=== PATIENT | female | born 1960 | race Caucasian/White ===

== ENCOUNTER 2017-02-16 06:59 | Inpatient (IN) | payer MEDICARE, OTHER ==
[2017-01-29 13:53] VITALS: BMI 40.4
[2017-02-16] MEDS ORDERED: Bupivacaine Liposomal Inj 20 ml INFIL ONE (07:25)
[2017-02-16] MEDS ORDERED: Propofol 10 mg/ml Inj (20 ML) ONE (07:50)
[2017-02-16] MEDS ORDERED: Midazolam 2 MG/2 ML VIAL ONE (07:51)
[2017-02-16] MEDS ORDERED: ceFAZolin IV 2 gm in Dextrose 1 GM/50 ML BAG IVPB ONE (08:01)
[2017-02-16] MEDS ORDERED: Lactated Ringer's 1,000 ML IV ONE ×2 (08:05→10:00)
[2017-02-16] MEDS: Bacitracin 150,000 UNIT in Sodium Chloride 0.9% Irrig 3,000 ML IR SCH ×2 (08:10→10:00)
[2017-02-16] MEDS ORDERED: Tranexamic Acid 100 mg/ml IVPB ONE (08:37)
[2017-02-16] MEDS ORDERED: Rocuronium 10 mg/ml (5 ml) ONE (10:17)
[2017-02-16] MEDS ORDERED: Metoprolol 1 mg/ml Inj IVP ONE (10:17)
[2017-02-16] MEDS ORDERED: Succinylcholine Chloride 20 mg/ml Syr (5 ml) IV ONE (10:17)
[2017-02-16] MEDS ORDERED: Neostigmine Methylsulfate 3mg/3ml Syringe IV ONE (10:17)
[2017-02-16] MEDS ORDERED: Morphine 4 MG/ML VIAL ONE (10:56)
--- NOTE | 2017-02-16 12:31 | OP ---
PROCEDURE DATE: 02/16/2017 PREOPERATIVE DIAGNOSIS: Left knee arthritis. POSTOPERATIVE DIAGNOSIS: Left knee arthritis. PROCEDURE: Left total knee arthroplasty. SURGEON: Cirilo Sanches M.D. BUSINESS OBJECTS REPORT DEVELOPER: Dr. Sanches was assisted by DEREK Fisher, a third year medical student. Lesly was present and scrubbed throughout the case and assisted with retraction and wound closure. ANESTHESIA: General. COMPLICATIONS: None. ESTIMATED BLOOD LOSS: 200 mL. TOURNIQUET TIME: 100 minutes at 300 mmHg. IMPLANT: Biomet Vanguard total knee system. INDICATIONS FOR PROCEDURE: This is a 56-year-old female who presented with longstanding left knee pa in. Clinical examination was consistent with medial joint line tenderness, patellofemoral pain. Rad iographic examination was consistent with degenerative joint disease of the left knee. After a perio d of failed nonsurgical management, recommendations were for a left total knee arthroplasty. The ris ks, benefits, and alternatives of procedure were discussed with the patient and informed consent was obtained. OPERATIVE PROCEDURE: After surgical site was found and verified in preoperative holding area, the pa tient was taken to the operating room and placed supine on the operating room table. After administr ation of general anesthesia, patient received 2 grams of Ancef IV. A Bullard catheter was inserted. T ourniquet was placed about the left thigh. Care was taken to make sure all bony prominences and nerv es were well padded and protected. Venodyne boot was placed on the nonoperative extremity and the le ft lower extremity was prepped and draped in usual sterile fashion. Left lower extremity was exsangu inated using Esmarch and the tourniquet was inflated. Bony landmarks were identified about the left knee and approximately 10 cm longitudinal midline incision was made. Soft tissue was dissected sharp ly down to the knee joint and a medial parapatellar arthrotomy was performed. The anterior fat pad, ACL, PCL and menisci were all resected. Once the knee joint had been adequately exposed, the step dr willoughby was used to drill into the medullary canal of the distal femur. Intramedullary distal femoral gu sean was inserted and pinned into place. Our distal femoral resection was performed. Next, our femor al component was sized and the 4-in-1 cut block was placed. Anterior and posterior cuts were perform ed as well as our box cut. At this point, attention was directed to the tibia. Extramedullary tibia l guide was inserted and satisfied with our alignment, our tibial resection was performed. Flexion a nd extension gaps were checked. The patient was noted to have full extension and flexion, stable and balanced with varus valgus stress. Our tibial plate was sized and being careful to maintain the pro per rotation, the medullary canal of the proximal tibia was reamed and punched with the cruciate punc h. With the trial tibia, trial femur, and trial bearing in place, the knee was taken through a range of motion and was noted to have full extension and flexion and was noted to be stable. Our attentio n was directed to the patella. The thickness of patella was measured and our patellar resection was performed. Patella button was sized and the holes for our patella button were then drilled. With tr ial patella in place, the knee was taken through a range of motion. The patient was noted to have so me lateral tilt which was corrected by performing a lateral retinacular release. Satisfied, all the trial components were removed and the knee joint was pulse lavaged with antibiotic saline solution. The bony surfaces were dried and the actual tibial, femoral and patellar components were cemented in place. Care was taken to remove all excess cement. Once the cement had hardened, the wound was insp ected for any debris and the tourniquet was deflated. Any obvious bleeding was cauterized. The woun d was once again irrigated and then the actual bearing was inserted and locked into place with a cros s pin. A medium Hemovac drain was inserted and our arthrotomy was closed using #1 Vicryl suture. Cummins bcutaneous tissue was closed using 0 Vicryl and 2-0 Vicryl suture and the skin was closed using stapl es. Sterile dressing was applied and a knee immobilizer was placed. The patient was awakened from t he procedure, taken to recovery room in stable condition. Cirilo Sanches MD cc: [id number] TT: 02/16/2017 12:30:46 tanner
[2017-02-16] MEDS ORDERED: HYDROmorphone 0.5 mg/0.5 ml ISec IVP PRN (13:00)
--- NOTE | 2017-02-16 13:16 | RAD ---
PROCEDURE: Left Knee Radiographs. HISTORY: Pain. COMPARISON: None. FINDINGS: BONES: Status post recent total knee arthroplasty tibial stem cemented. Femoral and tibial components patellar alignment appear normal. JOINTS: Postop changes JOINT EFFUSION: Joint effusion with a drain in place OTHER FINDINGS: Anterior skin sutures IMPRESSION: Recent total knee arthroplasty postop changes
[2017-02-16] MEDS ORDERED: Bupivacaine 0.5% Inj(30mL) ONE (13:43)
--- NOTE | 2017-02-16 13:57 | PCM.ANESB3 ---
Femoral Nerve Block - Femoral Nerve Block Date of Procedure: 02/16/17 Anesthesiologist: Ange Pre-Procedure Diagnosis: Left knee osteoarthritis Post-Procedure Diagnosis: Left TKR Procedure Performed: Femoral Nerve Block Left - Procedure Femoral Nerve Block: The procedure was explained to the patient that it is for the post-operative pain management. Consent was obtained after a thorough discussion with the patient regarding the benefits and possible complications of local anesthetic block of the femoral nerve at the inguinal crease area. The patient was brought to the recovery room and standard monitors were applied. After applying oxygen by nasal cannula and administering IV Sedation, patient was placed in supine position with fully extended lower extremities and the __left groin exposed. The femoral artery was then carefully palpated. The ultrasound transducer was then applied to this area in the transverse plane and the femoral nerve was visualized lateral to the femoral artery and underneath the fascia iliaca. After thorough identification, the inguinal crease area was prepped with Betadine solution three times and 1 % Lidocaine was injected subcutaneously for topical anesthesia. At this point, a #22 gauge Stimuplex 2-inch needle was inserted immediately lateral to the femoral artery pulse at the inguinal crease and advanced perpendicularly. The needle was inserted to the ultrasound transducer in-plane towards the femoral nerve in a [id number] direction. Needle advancement was performed carefully under direct ultrasound visualization. After negative aspiration, __30___cc of __0.5___% __Bupivacaine was injected and this was followed with cc of % . Under ultrasound guidance the local anesthetics were observed spreading below fascia iliaca and around the femoral nerve. The needle was removed intact and sterile dressing was applied. The patient had stable vital signs, was conscious and in no apparent distress. The patient tolerated the femoral nerve block well with stable vital signs .
[2017-02-16] MEDS ORDERED: Trimethobenzamide 200 mg/2 mL Inj IM STA (14:17)
[2017-02-16] MEDS ORDERED: Dexamethasone 4 mg/1 ml IVP STA (14:17)
[2017-02-16] MEDS ORDERED: ceFAZolin IV 2 gm in Dextrose 2 GM/100 ML BAG IVPB SCH (16:00)
[2017-02-17] MEDS: HYDROmorphone 1 mg/ml ISec IVP PRN ×2 (08:52→20:58)
--- NOTE | 2017-02-17 09:50 | CP.PCM.PN ---
Subjective - Date & Time of Evaluation Date of Evaluation: 02/17/17 Time of Evaluation: 09:48 - Subjective Subjective: Pt awake, alert. Adequate pain control. Afebrile LLE: dressing clean and dry immobilizer in place Drain to suction Labs pending Lovenox today Repeat xrays check labs d/c planning Objective - Vital Signs/Intake and Output Vital Signs (last 24 hours): Temp Pulse Resp BP Pulse Ox 99 F 82 20 112/68 98 02/17/17 07:00 02/17/17 07:00 02/17/17 07:00 02/17/17 07:00 02/17/17 07:00 Intake and Output: 02/17/17 02/17/17 06:59 18:59 Intake Total 500 Output Total 640 Balance -140 - Medications Medications: Current Medications Enoxaparin Sodium (Lovenox) 30 mg SC Q12 [facility] Hydromorphone HCl (Dilaudid) 1 mg IVP Q3H PRN PRN Reason: Pain, severe (8-10) Last Admin: 02/17/17 08:52 Dose: 1 mg Oxycodone/Acetaminophen (Percocet 5/325 Mg Tab) 2 tab PO Q4H PRN PRN Reason: Pain, moderate (4-7) Stop: 02/19/17 12:03
[2017-02-17] MEDS: Enoxaparin 30 mg Syringe SC SCH ×2 (10:05→20:59)
--- NOTE | 2017-02-17 16:54 | RAD ---
Indication: Postoperative Comparison: Left knee radiograph performed 02/16/17 Two views, left knee Findings: The patient is status post left knee total arthroplasty. Alignment appears satisfactory. Soft tissue swelling, subcutaneous emphysema, and surgical memo compatible with recent postoperative history. Suprapatellar joint effusion. Drainage catheter present. Impression: Status post left arthroplasty as above.
[2017-02-17 17:49] LABS: BASO # 0.1 K/uL (0.0-0.2); EOS # 0.1 K/uL (0.0-0.7); EOS % 1.5 % (0.0-4.0); HEMATOCRIT 30.8 % (34.0-47.0); LYMPH # 1.9 K/uL (1.0-4.3); LYMPH % 27.5 % (20.0-40.0); MEAN CELL VOLUME 87.1 fL (81.0-99.0); MEAN CORPUSCULAR HEMOGLOBIN 28.1 pg (27.0-31.0); MEAN CORPUSCULAR HGB CONC 32.3 g/dL (33.0-37.0); MEAN PLATELET VOLUME 8.4 fL (7.2-11.7); MONO # 0.7 K/uL (0.0-0.8); MONO % 10.3 % (0.0-10.0); RED CELL DISTRIBUTION WIDTH 14.8 % (11.5-14.5)
[2017-02-17 17:58] LABS: CHLORIDE 99 mmol/L (98-107); SODIUM 137 mmol/L (132-148)
[2017-02-17 17:59] LABS: POTASSIUM 3.9 mmol/L (3.6-5.2)
[2017-02-17 18:01] LABS: GFR AFRICAN-AMERICAN > 60
[2017-02-17 18:02] LABS: BLOOD UREA NITROGEN 19 mg/dL (7-17); CALCIUM 8.3 mg/dl (8.6-10.4); CARBON DIOXIDE 29 mmol/L (22-30); GLUCOSE,RANDOM 129 mg/dL (65-105)
[2017-02-18] MEDS: Oxycodone/Acetaminophen 5/325 mg Tab PO PRN ×2 (05:21→18:01)
[2017-02-18] MEDS: Enoxaparin 30 mg Syringe SC SCH ×2 (09:10→21:03)
[2017-02-18 11:05] LABS: HEMATOCRIT 33.9 % (34.0-47.0); MEAN CELL VOLUME 87.3 fL (81.0-99.0); MEAN CORPUSCULAR HEMOGLOBIN 27.9 pg (27.0-31.0); MEAN PLATELET VOLUME 8.2 fL (7.2-11.7); WHITE BLOOD COUNT 6.8 K/uL (4.8-10.8)
[2017-02-18 11:12] LABS: CHLORIDE 97 mmol/L (98-107); POTASSIUM 4.3 mmol/L (3.6-5.2); SODIUM 136 mmol/L (132-148)
[2017-02-18 11:15] LABS: BLOOD UREA NITROGEN 16 mg/dL (7-17); CARBON DIOXIDE 33 mmol/L (22-30); GFR AFRICAN-AMERICAN > 60; GLUCOSE,RANDOM 150 mg/dL (65-105)
[2017-02-18 11:16] LABS: CALCIUM 8.3 mg/dl (8.6-10.4)
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
--- NOTE | 2017-02-18 14:08 | CP.PCM.PN ---
Subjective - Date & Time of Evaluation Date of Evaluation: 02/18/17 Time of Evaluation: 07:30 - Subjective Subjective: Patient seen and examined this morning, complaining of lower rib pain on both sides. No central chest pain, says she got a little dizzy with PT. Friend at bedside in afternoon. PT recommending [facility], patient is refusing "I like being home." Explained to patient that she only took a few steps with assistance with PT, has not done stairs, and that it is recommendation of PT and Dr. Sanches to go to [facility], as she would benefit from more PT. She lives with son but he is not home all the time. Advised patient risk of stiffness, decreased function, fall (fracture, wound dehiscence). Patient states she will speak to son regarding rehab placement. Objective - Vital Signs/Intake and Output Vital Signs (last 24 hours): Temp Pulse Resp BP Pulse Ox 98.6 F 94 H 20 142/74 100 02/17/17 23:30 02/18/17 02:29 02/17/17 23:30 02/18/17 02:29 02/17/17 23:30 Intake and Output: 02/18/17 02/18/17 06:59 18:59 Intake Total 500 Output Total 365 Balance 135 - Medications Medications: Current Medications Amlodipine Besylate (Norvasc) 5 mg PO DAILY [facility] Enoxaparin Sodium (Lovenox) 30 mg SC Q12 [facility] Last Admin: 02/18/17 09:10 Dose: 30 mg Hydrochlorothiazide (Microzide) 12.5 mg PO DAILY [facility] Hydromorphone HCl (Dilaudid) 1 mg IVP Q3H PRN PRN Reason: Pain, severe (8-10) Last Admin: 02/17/17 20:58 Dose: 1 mg Losartan Potassium (Cozaar) 50 mg PO DAILY [facility] Metformin HCl (Glucophage) 500 mg PO DAILY@0800 [facility] Oxycodone/Acetaminophen (Percocet 5/325 Mg Tab) 2 tab PO Q4H PRN PRN Reason: Pain, moderate (4-7) Stop: 02/19/17 12:03 Last Admin: 02/18/17 05:21 Dose: 2 tab Pantoprazole Sodium (Protonix Ec Tab) 40 mg PO DAILY [facility] Propranolol HCl (Inderal La) 80 mg PO QAM [facility]EN - Labs Labs: 02/18/17 10:56 02/18/17 10:56 - Constitutional Appears: Well, No Acute Distress - Respiratory Exam Respiratory Exam: NORMAL BREATHING PATTERN - Extremities Exam Additional comments: dressing changed. incision intact. sterile gauze/tegaderm applied. Hemovac pulled. ki applied. Instructed patient to start CPM today, and that she will be moving knee more. calves sfot NT neg homans - Neurological Exam Neurological Exam: Alert, Awake, Oriented x3 Additional comments: LLE: +ROM ankle/toes 5/5 - Psychiatric Exam Psychiatric exam: Normal Affect, Normal Mood - Skin Skin Exam: Normal Color, Warm Additional comments: incision intact no erythema mild expected ecchymosis Assessment and Plan (1) Primary osteoarthritis of left knee Assessment & Plan: POD#2 s/p left TKR -PT/OT -DAMION referral if pt amenable -OOB -VTE proph -ambulation training with stairs -CPM ordered -d/w Dr. Sanches, agrees with above Status: Acute (2) HTN (hypertension) Assessment & Plan: cont home meds, med consult Status: Chronic (3) Diabetes type 2, controlled Assessment & Plan: cont home meds, accuchecks Status: Chronic
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
[2017-02-18] MEDS: Pantoprazole 40 mg EC Tab PO SCH (14:30)
[2017-02-18] MEDS: Magnesium Hydroxide Susp 30 ml UD PO PRN (17:29)
[2017-02-19] MEDS: Oxycodone/Acetaminophen 5/325 mg Tab PO PRN (05:52)
[2017-02-19 07:51] LABS: BASO % 0.5 % (0.0-2.0); EOS # 0.3 K/uL (0.0-0.7); EOS % 4.7 % (0.0-4.0); HEMATOCRIT 34.9 % (34.0-47.0); LYMPH # 1.3 K/uL (1.0-4.3); LYMPH % 23.2 % (20.0-40.0); MEAN CELL VOLUME 86.4 fL (81.0-99.0); MEAN CORPUSCULAR HEMOGLOBIN 27.8 pg (27.0-31.0); MEAN CORPUSCULAR HGB CONC 32.2 g/dL (33.0-37.0); MEAN PLATELET VOLUME 8.5 fL (7.2-11.7); MONO # 0.6 K/uL (0.0-0.8); MONO % 10.6 % (0.0-10.0); NRBC % 0.1 % (0.0-2.0); RED CELL DISTRIBUTION WIDTH 14.6 % (11.5-14.5); WHITE BLOOD COUNT 5.7 K/uL (4.8-10.8)
[2017-02-19 08:07] LABS: CHLORIDE 93 mmol/L (98-107)
[2017-02-19 08:08] LABS: POTASSIUM 4.1 mmol/L (3.6-5.2); SODIUM 133 mmol/L (132-148)
[2017-02-19 08:10] LABS: CARBON DIOXIDE 32 mmol/L (22-30); GFR AFRICAN-AMERICAN > 60
[2017-02-19 08:11] LABS: ALB/GLOB RATIO 1.1 (1.0-2.1); ALKALINE PHOSPHATASE 80 U/L (38-126); ALT/SGPT 15 U/L (9-52); AST/SGOT 27 U/L (14-36); BILIRUBIN,TOTAL 0.9 mg/dL (0.2-1.3); BLOOD UREA NITROGEN 13 mg/dL (7-17); CALCIUM 8.2 mg/dl (8.6-10.4); GLUCOSE,RANDOM 175 mg/dL (65-105); TOTAL PROTEIN 7.2 g/dL (6.3-8.3)
--- NOTE | 2017-02-19 08:23 | CP.PCM.PN ---
Subjective - Date & Time of Evaluation Date of Evaluation: 02/19/17 Time of Evaluation: 08:51 - Subjective Subjective: Patient states knee pain is controlled. Good appetite. Denies CP/SOB/dizziness. Objective - Vital Signs/Intake and Output Vital Signs (last 24 hours): Temp Pulse Resp BP Pulse Ox 98.6 F 75 18 128/81 98 02/19/17 07:00 02/19/17 07:00 02/19/17 07:00 02/19/17 07:00 02/19/17 07:00 Intake and Output: 02/19/17 02/19/17 06:59 18:59 Intake Total 400 Balance 400 - Medications Medications: Current Medications Amlodipine Besylate (Norvasc) 5 mg PO DAILY [facility] Last Admin: 02/18/17 14:30 Dose: 5 mg Enoxaparin Sodium (Lovenox) 30 mg SC Q12 [facility] Last Admin: 02/18/17 21:03 Dose: 30 mg Hydrochlorothiazide (Microzide) 12.5 mg PO DAILY [facility] Last Admin: 02/18/17 14:30 Dose: 12.5 mg Hydromorphone HCl (Dilaudid) 1 mg IVP Q3H PRN PRN Reason: Pain, severe (8-10) Last Admin: 02/17/17 20:58 Dose: 1 mg Losartan Potassium (Cozaar) 50 mg PO DAILY [facility] Last Admin: 02/18/17 14:30 Dose: 50 mg Magnesium Hydroxide (Milk Of Magnesia) 30 ml PO Q6 PRN PRN Reason: CONSTIPATION Last Admin: 02/18/17 17:29 Dose: 30 ml Metformin HCl (Glucophage) 500 mg PO DAILY@0800 [facility] Last Admin: 02/19/17 08:20 Dose: 500 mg Oxycodone/Acetaminophen (Percocet 5/325 Mg Tab) 2 tab PO Q4H PRN PRN Reason: Pain, moderate (4-7) Stop: 02/19/17 12:03 Last Admin: 02/19/17 05:52 Dose: 2 tab Pantoprazole Sodium (Protonix Ec Tab) 40 mg PO DAILY [facility] Last Admin: 02/18/17 14:30 Dose: 40 mg Propranolol HCl (Inderal) 20 mg PO QID [facility] - Labs Labs: 02/19/17 07:36 02/19/17 07:36 - Constitutional Appears: Well, No Acute Distress - Extremities Exam Additional comments: Left knee dressing change. +ROM ankle/toes, sensation intact, +DP/PT pulses, calves soft NT neg homans incision intact, no erythema. Sterile gauze/tegaderm/ki applied Assessment and Plan (1) Primary osteoarthritis of left knee Assessment & Plan: POD#3 s/p left TKR -labs reviewed -cont PT/OT -VTE proph, lovenox -awaiting rehab placement -Explained to patient that "rib" pain is muscular soreness from using arms to bear weight on walker, and will improve. -above d/w Dr. Sanches, agrees with above Status: Acute (2) HTN (hypertension) Assessment & Plan: cont home meds Status: Chronic (3) Diabetes type 2, controlled Assessment & Plan: cont home meds Status: Chronic
[2017-02-19] MEDS: Enoxaparin 30 mg Syringe SC SCH (09:41)
[2017-02-19] MEDS: Pantoprazole 40 mg EC Tab PO SCH (09:42)
[2017-02-19] MEDS: Magnesium Hydroxide Susp 30 ml UD PO PRN (10:30)
--- NOTE | 2017-02-19 11:09 | CP.PCM.DIS ---
Provider - Provider Date of Admission: 02/16/17 06:59 Attending physician: Cirilo Sanches MD Consults: Hospitalist Time Spent in preparation of Discharge (in minutes): 5 Diagnosis - Discharge Diagnosis (1) Primary osteoarthritis of left knee Status: Acute (2) HTN (hypertension) Status: Chronic (3) Diabetes type 2, controlled Status: Chronic Hospital Course - Lab Results Lab Results: Most Recent Lab Values WBC 5.7 K/uL (4.8-10.8) 02/19/17 07:36 RBC 4.04 Mil/uL (3.80-5.20) 02/19/17 07:36 Hgb 11.2 g/dL (11.0-16.0) 02/19/17 07:36 Hct 34.9 % (34.0-47.0) 02/19/17 07:36 MCV 86.4 fL (81.0-99.0) 02/19/17 07:36 MCH 27.8 pg (27.0-31.0) 02/19/17 07:36 MCHC 32.2 g/dL (33.0-37.0) L 02/19/17 07:36 RDW 14.6 % (11.5-14.5) H 02/19/17 07:36 Plt Count 269 K/uL (130-400) 02/19/17 07:36 MPV 8.5 fL (7.2-11.7) 02/19/17 07:36 Neut % (Auto) 61.0 % (50.0-75.0) 02/19/17 07:36 Lymph % (Auto) 23.2 % (20.0-40.0) 02/19/17 07:36 Smith % (Auto) 10.6 % (0.0-10.0) H 02/19/17 07:36 Eos % (Auto) 4.7 % (0.0-4.0) H 02/19/17 07:36 Baso % (Auto) 0.5 % (0.0-2.0) 02/19/17 07:36 Neut # 3.5 K/uL (1.8-7.0) 02/19/17 07:36 Lymph # 1.3 K/uL (1.0-4.3) 02/19/17 07:36 Smith # 0.6 K/uL (0.0-0.8) 02/19/17 07:36 Eos # 0.3 K/uL (0.0-0.7) 02/19/17 07:36 Baso # 0.0 K/uL (0.0-0.2) 02/19/17 07:36 Sodium 133 mmol/L (132-148) 02/19/17 07:36 Potassium 4.1 mmol/L (3.6-5.2) 02/19/17 07:36 Chloride 93 mmol/L (98-107) L 02/19/17 07:36 Carbon Dioxide 32 mmol/L (22-30) H 02/19/17 07:36 Anion Gap 12 (10-20) 02/19/17 07:36 BUN 13 mg/dL (7-17) 02/19/17 07:36 Creatinine 0.8 MG/DL (0.7-1.2) 02/19/17 07:36 Est GFR ( Amer) > 60 02/19/17 07:36 Est GFR (Non-Af Amer) > 60 02/19/17 07:36 POC Glucose (mg/dL) 165 mg/dL (65-110) H 02/19/17 06:20 Random Glucose 175 mg/dL (65-105) H 02/19/17 07:36 Calcium 8.2 mg/dl (8.6-10.4) L 02/19/17 07:36 Total Bilirubin 0.9 mg/dL (0.2-1.3) 02/19/17 07:36 AST 27 U/L (14-36) 02/19/17 07:36 ALT 15 U/L (9-52) 02/19/17 07:36 Alkaline Phosphatase 80 U/L (38-126) 02/19/17 07:36 Total Protein 7.2 g/dL (6.3-8.3) 02/19/17 07:36 Albumin 3.7 g/dL (3.5-5.0) 02/19/17 07:36 Globulin 3.5 gm/dL (2.2-3.9) 02/19/17 07:36 Albumin/Globulin Ratio 1.1 (1.0-2.1) 02/19/17 07:36 Blood Type A POSITIVE 02/16/17 09:38 Antibody Screen Negative 02/16/17 09:38 - Hospital Course Hospital Course: 56F with PMH: HTN, DM with left knee osteoarthritis failed conservative management and elected for TKR. Postoperative imaging demonstrated acceptable position of prosthesis. Medical consultation was requested for post operative medical management. HTN and DM were controlled throughout admission. Patient tolerated PT/OT well. Patient received VTE prophylaxis in the form of lovenox 30mg SQ q12h and venodynes. Patient had uneventful post operative course. [facility], and continued on home medications as well as the lovenox. Patient was WBAT LLE, ambulating with walker, and given instructions for daily dressing changes and to f/u Dr. Sanches within 2 weeks. Discharge Exam - Head Exam Head Exam: ATRAUMATIC Discharge Plan - Follow Up Plan Condition: GOOD Disposition: REHAB FACILITY/REHAB UNIT Referrals: Cirilo Sanches MD [Staff Provider] - 03/04/17 (Dressing change left knee daily Knee immobilizer at night, may remove during day WBAT LLE [place] can be removed 03/02 f/u Dr. Sanches 7-10 days call for appointment)
[2017-02-19 14:04] LABS: IRON 33 ug/dL (37-170)
[2017-02-19] MEDS: HYDROmorphone 1 mg/ml ISec IVP PRN (14:32)
[2017-02-19 15:57] VITALS: BP 129/72; PULSE 73; RESP 20; TEMP 99; O2SAT 96
--- NOTE | 2017-02-19 16:48 | CP.PCM.PN ---
<SamaraEden - Last Filed: 02/19/17 16:46> Subjective - Date & Time of Evaluation Date of Evaluation: 02/19/17 Time of Evaluation: 16:46 - Subjective Subjective: Patient seen and examined at bedside, POD #1 s/p Left Knee Replacement. Patient resting in bed comfortably. She states her pain is well controlled. Patient to be transferred to [facility]. She denies chest pain, palpitations, shortness of breath , and lower extremity pain or swelling. Patient demonstrates mobility of bilateral lower extremities. She is tolerating diet well and denies nausea, vomiting, and abdominal pain. Objective - Vital Signs/Intake and Output Vital Signs (last 24 hours): Temp Pulse Resp BP Pulse Ox 99 F 73 20 129/72 96 02/19/17 15:00 02/19/17 15:00 02/19/17 15:00 02/19/17 15:00 02/19/17 15:00 Intake and Output: 02/19/17 02/19/17 06:59 18:59 Intake Total 400 500 Balance 400 500 - Medications Medications: Current Medications Amlodipine Besylate (Norvasc) 5 mg PO DAILY [facility] Last Admin: 02/19/17 09:41 Dose: 5 mg Enoxaparin Sodium (Lovenox) 30 mg SC Q12 [facility] Last Admin: 02/19/17 09:41 Dose: 30 mg Hydrochlorothiazide (Microzide) 12.5 mg PO DAILY [facility] Last Admin: 02/19/17 09:42 Dose: 12.5 mg Hydromorphone HCl (Dilaudid) 1 mg IVP Q3H PRN PRN Reason: Pain, severe (8-10) Last Admin: 02/19/17 14:32 Dose: 1 mg Losartan Potassium (Cozaar) 50 mg PO DAILY [facility] Last Admin: 02/19/17 09:42 Dose: 50 mg Magnesium Hydroxide (Milk Of Magnesia) 30 ml PO Q6 PRN PRN Reason: CONSTIPATION Last Admin: 02/19/17 10:30 Dose: 30 ml Metformin HCl (Glucophage) 500 mg PO DAILY@0800 [facility] Last Admin: 02/19/17 08:20 Dose: 500 mg Pantoprazole Sodium (Protonix Ec Tab) 40 mg PO DAILY [facility] Last Admin: 02/19/17 09:42 Dose: 40 mg Propranolol HCl (Inderal) 20 mg PO QID [facility] Last Admin: 02/19/17 13:05 Dose: 20 mg - Labs Labs: 02/19/17 07:36 02/19/17 07:36 - Constitutional Appears: Non-toxic, No Acute Distress - Head Exam Head Exam: ATRAUMATIC, NORMAL INSPECTION, NORMOCEPHALIC - Eye Exam Eye Exam: EOMI, Normal appearance, PERRL - ENT Exam ENT Exam: Mucous Membranes Moist - Neck Exam Neck Exam: Full ROM, Normal Inspection - Respiratory Exam Respiratory Exam: Clear to Ausculation Bilateral, NORMAL BREATHING PATTERN. absent: Rales, Rhonchi, Wheezes - Cardiovascular Exam Cardiovascular Exam: +S1, +S2. absent: Tachycardia - GI/Abdominal Exam GI & Abdominal Exam: Soft, Normal Bowel Sounds. absent: Firm, Guarding, Tenderness - Extremities Exam Additional comments: dressing to left extremity in place - Neurological Exam Neurological Exam: Alert, Awake, Oriented x3 - Psychiatric Exam Psychiatric exam: Normal Affect, Normal Mood - Skin Skin Exam: Intact, Normal Color Assessment and Plan - Assessment and Plan (Free Text) Assessment: (1) Status post left knee replacement Assessment and Plan: Treatment as per Ortho Team PT/OT Dilaudid 1 mg IV Q3H PRN Severe Pain Percocet 5/325 mg 2 tab PO Q4H PRN Moderate Pain Lovenox 30 mg SC Q12H for DVT prophylaxis Patient refusing DAMION at this time despite explaining benefits for her recovery Status: Acute (2) Hx of type 2 diabetes mellitus Assessment and Plan: Continue Metformin 500 mg PO qd Status: Acute (3) HTN (hypertension) Assessment and Plan: Normotensive Norvasc 5 mg PO 1x/day Propranolol 80 mg PO 1x/day (AM) HCTZ/Losartan 12.5/50 mg PO 1x/day Status: Acute (4) Anemia Assessment and Plan: Could be secondary to recent surgery Iron 33, TIBC 273, % Saturation 12, Ferritin 276 However, Iron Studies are ordered and will need to be followed up as outpatient if patient is discharged by Orthopedics Team. Also if the Iron is low, then patient should schedule Colonoscopy with GI through referral obtained from her PMD as an outpatient. Status: Acute (5) Prophylactic measure Assessment and Plan: Protonix 40 mg PO 1x/day for GI Prophylaxis Lovenox as above for DVT Prophylaxis Heart Healthy Low Carbohydrate 2 gm Na diet Status: Acute (5) Prophylactic measure Assessment and Plan: Patient discharged to [facility] Will continue on home medications and Lovenox Ambulating with walker Daily dressing changes and follow-up with Dr. Sanches in 2 weeks. [place] to be removed 03/02 <Gilbert Landeros - Last Filed: 03/19/17 11:53> Objective - Vital Signs/Intake and Output Vital Signs (last 24 hours): Temp Pulse Resp BP Pulse Ox 99 F 73 20 129/72 96 02/19/17 15:00 02/19/17 15:00 02/19/17 15:00 02/19/17 15:00 02/19/17 15:00 - Labs Labs: 02/19/17 07:36 02/19/17 07:36 Attending/Attestation - Attestation I have personally seen and examined this patient.: Yes I have fully participated in the care of the patient.: Yes I have reviewed all pertinent clinical information, including history, physical exam and plan: Yes Notes (Text): Patient seen and examined with the resident. Agree with the resident's evaluation, assessment and plan. (1) Status post left knee replacement Assessment and Plan: Treatment as per Ortho Team PT/OT Dilaudid 1 mg IV Q3H PRN Severe Pain Percocet 5/325 mg 2 tab PO Q4H PRN Moderate Pain Lovenox 30 mg SC Q12H for DVT prophylaxis Patient refusing DAIMON at this time despite explaining benefits for her recovery Status: Acute (2) Hx of type 2 diabetes mellitus Assessment and Plan: Continue Metformin 500 mg PO qd Status: Acute
== END 2017-02-19 16:57 | DRG 470 ==
LOC: C.9S 06:59 → C.6T 19:04
PROVIDERS: ADMIT Orthopaedic Surgery; ATTEND Orthopaedic Surgery
PROC: 0SRD0J9 Replacement of Left Knee Joint with Synthetic Substitute, Cemented, Open Approach (ICD-10-PCS; principal; 2017-02-16 08:05)
DX: M17.12 Unilateral primary osteoarthritis, left knee (principal); D62 Acute posthemorrhagic anemia; I10 Essential (primary) hypertension; E11.9 Type 2 diabetes mellitus without complications; E78.00 Pure hypercholesterolemia, unspecified; K21.9 Gastro-esophageal reflux disease without esophagitis; Z79.84 Long term (current) use of oral hypoglycemic drugs; Z96.651 Presence of right artificial knee joint